=== PATIENT | female | born 1975 | race Asian ===

== ENCOUNTER 2021-08-30 19:15 | Emergency (ER) | payer OTHER ==
[2021-08-30 19:22] VITALS: BP 115/71
--- NOTE | 2021-08-30 20:03 | ED Physician Documentation ---
History of Present Illness - Stated complaint Stated Complaint: LT KNEE PX - Chief complaint Chief Complaint: Ext Problem - Additonal information Additional information: 38-year-old female presents emergency department for evaluation of acute left knee pain. She reports attempting to grab some produce out of a freezer this morning and she fell directly onto the knee as well as her buttock. She did not think anything of it initially and was ambulatory but as the day is gone on she is gotten progressively painful and tender in the knee now nonweightbearing. No history of previous injury. No open sores lesions or lacerations. Denies any history of diabetes or immune compromise. Review of Systems Constitutional: denies: Fever, Chills Throat: reports: Reviewed and negative Respiratory: reports: Reviewed and negative GI: reports: Reviewed and negative : reports: Reviewed and negative Musculoskeletal: reports: Joint pain (left knee) Neurologic: reports: Reviewed and negative PD PAST MEDICAL HISTORY - Past Medical History Past Medical History: No - Past Surgical History Past Surgical History: Yes General: Appendectomy - Present Medications Home Medications: Ambulatory Orders Medication Instructions Recorded Confirmed No Known Home Medications 08/30/21 08/30/21 - Allergies Allergies/Adverse Reactions: Allergies Allergy/AdvReac Type Severity Reaction Status Date / Time No Known Drug Allergies Allergy Verified 08/30/21 19:19 - Social History Does the pt smoke?: Yes Smoking Status: Current every day smoker Does the pt drink ETOH?: No Does the pt have substance abuse?: No - Immunizations Immunizations are current?: No Immunizations: TDAP >10years/unknown PD ED PE EXPANDED - General General: Alert, No acute distress - Cardiac Cardiac: Regular Rate, Radial strong equal, Pedal strong equal, Cap refill < 2 sec - Extremities Extremities: Left knee (Normal flexion and extension though tender. No palpable effusion no swelling or erythema. No laxity with stress testing. Painful to bear full weight. No tenderness at the proximal tibial head.) Results - Vitals Vitals: Vital Signs - 24 hr 08/30/21 19:20 Temperature 37.1 C Heart Rate 81 Respiratory 18 Rate Blood Pressure 115/71 O2 Saturation 100 Oxygen O2 Source Room air - Rads (name of study) left knee Radiology: Final report received (No fracture or dislocation.) PD MEDICAL DECISION MAKING - ED course Complexity details: reviewed results, re-evaluated patient, d/w patient ED course: 46-year-old female presents emergency department with acute left knee pain after falling on it this morning. Initially she was ambulatory but is a day is gone on she is high progressive pain and now difficulty bearing weight. On exam there is no swelling erythema abrasions or laxity. No effusion noted. No tenderness of the proximal tibial head. X-ray of the knee does not demonstrate an acute fracture. I suspect she likely has a contusion. Patient was given an Dieudonne wrap and crutches. Recommend Tylenol and ibuprofen over the next week. If symptoms not markedly better follow-up with PCP for referral to orthopedics for repeat x-ray. Departure - Departure Disposition: 01 Home, Self Care Clinical Impression: Contusion of left knee Qualifiers: Encounter type: initial encounter Qualified Code(s): S80.02XA - Contusion of left knee, initial encounter Condition: Stable Record reviewed to determine appropriate education?: Yes Instructions: Contusion Bone Tx Comments: Zoe the x-ray of your knee is normal. I suspect that you simply have contusion or bruising around the knee that is causing the pain. I would like you to wear the Dieudonne wrap when out of bed for the next week. Recommend that you take Tylenol and ibuprofen. We have provided you some crutches to help you with ambulation. I would expect over the next 7 to 10 days your ability to bear weight and walk on the knee is progressively improving. If not improving then please return to the ER for a second evaluation.
--- NOTE | 2021-08-30 20:30 | XRAY Report ---
PROCEDURE: Knee 4 View LT INDICATIONS: Trauma TECHNIQUE: 4 views of the left knee(s) were acquired. COMPARISON: None. FINDINGS: Bones: No fractures or dislocations. No suspicious bony lesions. Soft tissues: No joint effusion. There are CT is calcifications above the patella, nonspecific. IMPRESSION: No fracture or dislocation. If clinical symptoms persist, advanced imaging such as CT or MRI may be helpful. Reviewed by: Wiliam Avina MD on 08/30/2021 8:28 PM PST Approved by: Wiliam Avina MD on 08/30/2021 8:28 PM PST Station ID: [id number]
== END 2021-08-30 20:57 | disposition home or self-care (01) ==
LOC: ED 19:15
DX: S80.02XA Contusion of left knee, initial encounter (principal); W18.39XA Other fall on same level, initial encounter; Y93.89 Activity, other specified; Y99.0 Civilian activity done for income or pay; F17.200 Nicotine dependence, unspecified, uncomplicated
CPT/HCPCS: 1040M; 73564; 99282; 99283

== ENCOUNTER 2023-11-14 10:06 | Emergency (ER) | payer OTHER ==
--- NOTE | 2023-11-14 11:19 | ED Physician Documentation ---
PD HPI UPPER EXT INJURY - Stated complaint Stated Complaint: RT HAND SWOLLEN - Chief complaint Chief Complaint: Ext Problem - History obtained from History obtained from: Patient - Additonal information Additional information: Patient is a 48-year-old female presenting for evaluation of right hand injury since last night. Patient works at [employer] and was using a slip box changer to open a number of boxes when she felt a sharp pain in the right hand. She then noticed some swelling which is continued to today. She reports pain with movements. She has tried ibuprofen and ice last night. Pain is better at rest.Does not take a blood thinner. Review of Systems Cardiac: denies: Chest pain / pressure Respiratory: denies: Dyspnea GI: denies: Abdominal Pain Musculoskeletal: reports: Extremity pain PD PAST MEDICAL HISTORY - Past Medical History Past Medical History: No - Past Surgical History Past Surgical History: Yes General: Appendectomy - Present Medications Home Medications: Ambulatory Orders Medication Instructions Recorded Confirmed No Known Home Medications 08/30/21 11/14/23 - Allergies Allergies/Adverse Reactions: Allergies Allergy/AdvReac Type Severity Reaction Status Date / Time No Known Drug Allergies Allergy Verified 11/14/23 10:20 - Social History Does the pt smoke?: Yes Smoking Status: Current every day smoker Does the pt drink ETOH?: No Does the pt have substance abuse?: No - Immunizations Immunizations are current?: No Immunizations: TDAP >10years/unknown PD ED PE NORMAL - General General: Alert and oriented X 3, No acute distress, Well developed/nourished - HEENT HEENT: Atraumatic - Cardiac Cardiac: Strong equal pulses - Respiratory Respiratory: No respiratory distress - Extremities Extremities: Other (Swelling and tenderness to dorsum of right hand, No tenderness to wrist but slight discomfort with flexion and extension, moves all fingers,Strong radial pulse, good cap refill, sensation grossly intact, no pain at elbow) Results - Vitals Vitals: Vital Signs - 24 hr 11/14/23 11/14/23 10:18 12:14 Temperature 36.5 C 36.5 C Heart Rate 87 82 Respiratory 18 16 Rate Blood Pressure 121/80 118/80 O2 Saturation 96 98 Oxygen O2 Source Room air PD Medical Decision Making - ED course Complexity details: reviewed results, d/w patient ED course: Patient is a 48-year-old female presenting for evaluation of right hand pain. She was at work yesterday when she was cutting a number of boxes and strained her hand. No other reported trauma. Has mild swelling. Otherwise neurovascularly intact. No signs of infection or open wounds.X-ray was obtained which I reviewed I see no fracture or dislocation. Placed into a Velcro splint and have her continue with supportive care. She is advised on need for follow- up. Advised on concerning symptoms to return for. Departure - Departure Disposition: Home, Self Care Clinical Impression: Sprain of hand, right Condition: Stable Instructions: ED Sprain Hand Comments: Official radiology read of your x-ray is pending but at this time I do not see any fracture or dislocation. You likely have a sprain of to the hand and I would recommend close follow-up with your primary care provider. In the meanwhile you should be on limited duty with use of the right hand at work. Continue with anti-inflammatories, ice, elevation and rest. We have also given you a splint to use for comfort. Return to the ER with any worsening. Forms: PCP List Discharge Date/Time: 11/14/23 12:13
--- NOTE | 2023-11-14 12:10 | XRAY Report ---
PROCEDURE: Hand 3+V RT INDICATIONS: swelling/pain TECHNIQUE: 3 views of the hand(s) acquired. COMPARISON: None. FINDINGS: Bones: No fractures or dislocations. No suspicious bony lesions. There are age-indeterminate, non acute bone fragment seen adjacent to the base of the second metacarpal. Soft tissues: No suspicious soft tissue calcifications or masses. IMPRESSION: No acute radiographic abnormality. Age-indeterminate, nonacute appearing bone fragments are seen camelia cent to the base of the second metacarpal. If there is high concern for further derangement, consider MRI evaluation. Reviewed by: Kristopher Barahona MD on 11/14/2023 12:09 PM PST Approved by: Kristopher Barahona MD on 11/14/2023 12:09 PM PST Station ID: [id number]
[2023-11-14 12:19] VITALS: BP 118/80; O2SAT 98
== END 2023-11-14 12:13 | disposition home or self-care (01) ==
LOC: ED 10:06
DX: S63.91XA Sprain of unspecified part of right wrist and hand, initial encounter (principal); X50.9XXA Other and unspecified overexertion or strenuous movements or postures, initial encounter; Y93.89 Activity, other specified; Y92.512 Supermarket, store or market as the place of occurrence of the external cause; Y99.0 Civilian activity done for income or pay; F17.200 Nicotine dependence, unspecified, uncomplicated
CPT/HCPCS: 99283

== ENCOUNTER 2024-03-15 09:45 | Outpatient (CLI) | payer OTHER ==
[2024-03-15 19:26] LABS: RHEUMATOID FACTOR NEGATIVE (Negative)
== END 2024-03-15 10:00 | disposition home or self-care (01) ==
LOC: LAB.N 09:45
PROVIDERS: ATTEND Physician Assistant Medical
DX: S66.911A Strain of unspecified muscle, fascia and tendon at wrist and hand level, right hand, initial encounter (principal)
CPT/HCPCS: 36415; 85651; 86038; 86140; 86430

== ENCOUNTER 2024-03-19 09:04 | Outpatient (CLI) | payer OTHER ==
--- NOTE | 2024-03-19 19:47 | XRAY Report ---
PROCEDURE: Hand 1-2V BL INDICATIONS: ARTHRISIT, HANDS, BILATERAL TECHNIQUE: 4 view(s) of the hand(s) acquired. COMPARISON: None FINDINGS: Bones: No fractures or dislocations. No suspicious bony lesions. Soft tissues: No suspicious soft tissue calcifications. IMPRESSION: Unremarkable hand radiographs Reviewed by: Jaun Davalos MD on 03/19/2024 6:46 PM AKDT Approved by: Jaun Davalos MD on 03/19/2024 6:46 PM AKDT Station ID: [id number]
== END 2024-03-19 09:05 | disposition home or self-care (01) ==
LOC: DI.N 09:04
PROVIDERS: ATTEND Family Medicine
DX: M19.041 Primary osteoarthritis, right hand (principal); M19.042 Primary osteoarthritis, left hand